=== PATIENT | female | born 1985 | race Caucasian/White ===

== ENCOUNTER 2019-04-09 20:30 | Emergency (ER) | payer MEDICAID, OTHER ==
[~2019-04-09] VITALS: Ht 172.7 cm; Wt 81.6 kg
[~2019-04-09 20:30] MED LIST: METO10TA92 PO
[2019-04-09 20:33] VITALS: BP 117/72; PULSE 82; RESP 14; Ht 172.7 cm; Wt 81.6 kg
[2019-04-09] MEDS ORDERED: ONDANSETRON (ODT) 4 MG TAB ODT STA (21:41)
== END 2019-04-10 00:16 | disposition home or self-care (01) ==
LOC: FTE 20:30
DX: F15.10 Other stimulant abuse, uncomplicated (principal); R11.0 Nausea
CPT/HCPCS: 80053; 81003; 81025; 85025; Z7502; Z7610; 99283